=== PATIENT | female | born 1985 | race Caucasian/White ===

== ENCOUNTER → 2021-01-08 07:36 | Outpatient (CLI) | payer OTHER, MEDICAID, SELFPAY ==
--- NOTE | 2021-01-08 | DI.US.S_ITS ---
PROCEDURE: US OB <= 14 WEEKS FETUS INDICATIONS: DATES AND SIZING OUTSIDE/PRIOR DATING DATA: Last menstrual period (LMP): 11/21/20. LMP-based estimated date of delivery (RICHARD): 08/28/21. First dating scan (date and location): 01/08/21. Estimated date of delivery (RICHARD) from first dating scan: 08/27/21. TECHNIQUE: Real-time scanning was performed of the fetus and maternal pelvic organs, with image documentation. Endovaginal scanning was also performed to better visualize the fetus and maternal ovaries. COMPARISON: None. FINDINGS: Embryo: Single living intrauterine fetus with a crown-rump length measuring 1.0 cm, 7 weeks 0 days. Yolk sac is visualized. A presumed hypoechoic perigestational hemorrhage measuring 3.3 x 2.5 x 0.5 cm. Heart rate: 133 beats per minute Measurement variability in dating: +/- 4 weeks by LMP, +/- 7 days by mean sac diameter (use before 6 weeks gestation if crown-rump length not able to be measured), +/- 5 days by crown-rump length (up to 8 weeks 6 days gestation), +/- 7 days by crown-rump length (up to 13 weeks 6 days gestation). Maternal organs: Ovaries unremarkable except for a presumed left-sided corpus luteum . IMPRESSION: Single living intrauterine fetus with a gestational age measuring 7 weeks and 0 days with an ultrasound RICHARD of 08/27/21. Perigestational hemorrhage. Dictated by: Sarmad Cisneros M.D. on 01/08/2021 at 10:14 Approved by: Sarmad Cisneros M.D. on 01/08/2021 at 10:16
== END ==
PROVIDERS: PCP Registered Nurse; Referring Provider Nurse Practitioner Obstetrics & Gynecology; Visit Provider Nurse Practitioner Obstetrics & Gynecology
DX: Z36.87 Encounter for antenatal screening for uncertain dates (principal); Z3A.01 Less than 8 weeks gestation of pregnancy
CPT/HCPCS: 76801; 76817

== ENCOUNTER 2021-06-04 11:14 | Outpatient (CLI) | payer OTHER, MEDICAID, SELFPAY ==
--- NOTE | 2021-06-04 11:25 | DI.US.S_ITS ---
PROCEDURE: US OB LIMITED INDICATIONS: EVALUATE FOR SOURCE OF BLEEDING. AMNIOTIC FLUID. OUTSIDE/PRIOR DATING DATA: Last menstrual period (LMP): 11/21/2020. LMP-based estimated date of delivery (RICHARD): 08/28/2021. First dating scan (date and location): 01/08/2021. Estimated date of delivery (RICHARD) from first dating scan: 08/27/2021. The calculations are made using the ultrasound RICHARD of 08/27/2021. TECHNIQUE: Real-time scanning was performed of the fetus, with image documentation. Endovaginal scanning: Not performed. COMPARISON: None. FINDINGS: A single living intrauterine gestation is present. Presentation: Breech. Placenta: Placental position is posterior, without previa. No placental abruption. Amniotic fluid index: 14.1 cm, normal range is 5-24 cm. Single deepest vertical pocket is 3.8 cm. heart rate: 133 beats per minute. Maternal cervical canal: 4 cm long. Normal lower limit is 2.5 cm. No funneling. Cervical cyst most consistent with nabothian cysts. Estimated gestational age from initial scan: 28 weeks 0 days. IMPRESSION: 1. Browning living intrauterine at 28 weeks 0 days based on prior ultrasound. Breech position. 2. Normal placenta and amniotic fluid. 3. No placental abruption. No cervical funneling. Dictated by: Mikey Church M.D. on 06/04/2021 at 12:47 Approved by: Mikey Church M.D. on 06/04/2021 at 12:51
--- NOTE | 2021-06-04 13:09 | P.TNLD_ITS ---
Visit Information Visit Information Date of evaluation: 06/04/21 Primary OB Provider: Jessica Tracey On-call OB Provider: Nehal Mcdonnell Reason for Evaluation: Yes other Comments/Additional reasons for admission: 36YO @ [id number] based on LMP and early US. Presents for evaluation of vaginal bleeding has had spotting throughout , but this seems like slightly more to her with no discernable reason (no sex or activity in the last 24 hours). No cramping or contractions. No leaking of fluid. is complicated by ITP (platelets 60 on 06/03/21) for which she is seeing [facility] and [facility] and will likely deliver at [facility]. Vital Signs Vital Signs: BP 120/74mmHg, HR 84bpm, T 97.2F Temporal, RR 18/min [facility] Medical History (Updated 06/04/21 @ 13:24 by Jessica Tracey [facility]) Anemia (~2007) Anorexia nervosa (~1999) Surgical History Anesthesia History of bladder surgery (~2010) History of dilatation and curettage (~2007) History of knee surgery History of surgery on wrist (~1999) Family History (Updated 03/21/21 @ 12:29 by Lis Flores MD) Grandmother Hypertension Social History Smoking Status: Never smoker alcohol intake: never substance use type: does not use Review of Systems Review of Systems ROS: Yes All systems reviewed with the patient and are negative except as otherwise documented Exam Vital Signs (past 8 hours): see above Other: NO vaginal bleeding at time of evaluation or throughout 1.5 hour triage. Objective Imaging US OB Limited: Radiologist's impression: [address] [address] Ultrasound Report Signed Patient: Hair Pina MR#: [id number] : 1985 Acct:[id number] Age/Sex: 36 / F Date of Service: 06/04/21 Loc: LABOR Accession Number: [id number] ?? Procedure: US OB limited Ordering Provider: Jessica Tracey C.N.M. PROCEDURE:? US OB LIMITED ? INDICATIONS:? EVALUATE FOR SOURCE OF BLEEDING. AMNIOTIC FLUID. ? OUTSIDE/PRIOR DATING DATA:? Last menstrual period (LMP):? 11/21/2020.? LMP-based estimated date of delivery (RICHARD):? 08/28/2021.? First dating scan (date and location):? 01/08/2021.? Estimated date of delivery (RICHARD) from first dating scan:? 08/27/2021. The calculations are made using the ultrasound RICHARD of 08/27/2021.? ? TECHNIQUE: Real-time scanning was performed of the fetus, with image documentation.? Endovaginal scanning:? Not performed. ? COMPARISON:? None. ? FINDINGS:? A single living intrauterine gestation is present.? Presentation:? Breech.? Placenta:? Placental position is posterior, without previa.? No placental abruption. ? Amniotic fluid index:? 14.1 cm, normal range is 5-24 cm. Single deepest vertical pocket is 3.8 cm.? ? heart rate:? 133 beats per minute.? Maternal cervical canal:? 4 cm long.? Normal lower limit is 2.5 cm.? No funneling.? Cervical cyst most consistent with nabothian cysts.? ? Estimated gestational age from initial scan:? 28 weeks 0 days.? ? ? IMPRESSION:? 1. Browning living intrauterine at 28 weeks 0 days based on prior ultrasound.? Breech position. ? 2. Normal placenta and amniotic fluid. ? 3. No placental abruption.? No cervical funneling. ? ? ? Dictated by: Mikey Church M.D. on 06/04/2021 at 12:47 ? ? Approved by: Mikey Cuhrch M.D. on 06/04/2021 at 12:51 ? Evaluation Evaluation Baseline heart rate: 125 Variability: Moderate (11-25) monitor accelerations: Present Monitor Decelerations: Absent Contraction Frequency (minutes): 0 Comments: CE deferred Diagnosis, Plan/Disposition Final Diagnosis (1) Spotting affecting , antepartum: Status: Acute (2) Thrombocytopenia during : Status: Acute Plan/Disposition Plan: Reassurance given for no significant bleeding and no concerns for labor. Discharge to home with routine precautions. F/U w/ MFM and [facility] as previously scheduled. OB Disposition: home
== END 2021-06-04 13:10 | disposition home or self-care (01) ==
LOC: LABOR 12:12 → OB 06-05 14:00
PROVIDERS: Referring Provider Nurse Practitioner Obstetrics & Gynecology; Visit Provider Nurse Practitioner Obstetrics & Gynecology
DX: O26.852 Spotting complicating pregnancy, second trimester (principal); O99.112 Other diseases of the blood and blood-forming organs and certain disorders involving the immune mechanism complicating pregnancy, second trimester; D69.6 Thrombocytopenia, unspecified; Z3A.27 27 weeks gestation of pregnancy
CPT/HCPCS: 59050; 76815; 76817; G0378; G0379

== ENCOUNTER → 2021-06-21 06:54 | Outpatient (CLI) | payer OTHER, MEDICAID, SELFPAY ==
[2021-06-21 09:05] LABS: Glucose 1 Hour 162 mg/dL (70-170)
[2021-06-21 09:06] LABS: Glucose Fasting 90 mg/dL (70-100)
[2021-06-21 10:21] LABS: Glucose Tol Interpretation INTERPRETATION
[2021-06-21 10:26] LABS: Glucose 2 Hour 121 mg/dL (70-140)
[2021-06-21 12:00] LABS: Glucose 3 Hour 86 mg/dL (70-115)
== END ==
PROVIDERS: Referring Provider Nurse Practitioner Obstetrics & Gynecology; Visit Provider Nurse Practitioner Obstetrics & Gynecology
DX: Z13.1 Encounter for screening for diabetes mellitus (principal); Z3A.29 29 weeks gestation of pregnancy
CPT/HCPCS: 36415; 82951; 82952

== ENCOUNTER 2021-06-25 12:52 | Observation (INO) | payer OTHER, MEDICAID, SELFPAY ==
--- NOTE | 2021-06-25 | DI.US.S_ITS ---
PROCEDURE: US OB LIMITED INDICATIONS: EVALUATE BLEEDING OUTSIDE/PRIOR DATING DATA: Last menstrual period (LMP): 11/21/20. LMP-based estimated date of delivery (RIHCARD): 08/28/21. First dating scan (date and location): 01/08/21. Estimated date of delivery (RICHARD) from first dating scan: 08/27/21. The calculations are made using the ultrasound RICHARD of 08/27/21. TECHNIQUE: Real-time scanning was performed of the fetus for biophysical profile, with image documentation. Color and pulse Doppler interrogation was also performed of the umbilical artery near its insertion into the placenta. Endovaginal scanning: Performed for improved cervical detail COMPARISON: [facility], OB LIMITED, 06/04/2021, 11:41. FINDINGS: General: A single living intrauterine gestation is present. Presentation: Cephalic Placenta: Placental position is posterior , without previa. No evidence of abruption. Amniotic fluid index: 6.3 cm, normal range is 5-24 cm. Single deepest vertical pocket is 3.0 cm. heart rate: 144 beats per minute. Maternal cervical canal: 3.8 cm long. Normal lower limit is 2.5 cm. Endovaginal imaging confirms a closed cervix with a complicated posterior nabothian cyst. There is no funneling. The head is immediately adjacent to the internal cervical os. No evidence of Vasa previa. IMPRESSION: 1. Single living intrauterine . 2. No evidence of placental abruption. 3. Closed cervix. No evidence of Vasa previa. 4. Ordering provider was present during the examination. We strive to produce accurate, complete, and clear reports of imaging services. To assist us in improving patient care, this report was composed using standard report templates and voice recognition software. Therefore, it may contain abnormal punctuation, insertions and/or omissions. Occasional wrong-word or sound-alike substitutions may occur. Though we review the report and make efforts to correct it, we do recommend that the report be read carefully in proper context to recognize any text inaccuracies. Dictated by: Elida Ng M.D. on 06/25/2021 at 14:40 Approved by: Elida Ng M.D. on 06/25/2021 at 14:44
--- NOTE | 2021-06-25 13:12 | PM.OBTRLD ---
Visit Information Visit Information Date of evaluation: 06/25/21 Primary OB Provider: Jessica Tracey On-call OB Provider: Mj Landrum Reason for Evaluation: Yes other Comments/Additional reasons for admission: 36YO @ 30wks 6days based on LMP and early US.? Presents for evaluation of vaginal bleeding. Has had spotting throughout , but this is the most she's seen so far. Had sex yesterday afternoon that led to spotting which stopped overnight. Was out shopping today and noticed return of spotting with some small clots and now left sided cramping. No leaking of fluid.? is complicated by ITP (platelets 54 on 06/21/21) for which she is seeing [facility] and [facility] and will deliver at [facility].? Next appt w/ Prov [facility] is 06/28/21. ? Vital Signs Vital Signs: BP 120/68mmHg, HR 86bpm, T 36.8C Temporal PFSH Medical History (Updated 06/26/21 @ 07:25 by Jessica Tracey CNM) Anemia (~2007) Anorexia nervosa (~1999) Surgical History Anesthesia History of bladder surgery (~2010) History of dilatation and curettage (~2007) History of knee surgery History of surgery on wrist (~1999) Family History Grandmother Hypertension Social History Smoking Status: Never smoker alcohol intake: never substance use type: does not use Review of Systems Review of Systems ROS: Yes All systems reviewed with the patient and are negative except as otherwise documented Exam Vital Signs (past 8 hours): see above Speculum Exam - Vagina: normal appearance of the vagina and other (brown discharge visible) Speculum Exam - Cervix: normal appearance of the cervix, closed and other (small bleeding from os and endocervical transformation zone) Presentation: vertex Objective Imaging OB US Limited: My impression: DWAINE- 6.3cm. CL-3.8cm. Vertex lie. No evidence of bleeding. Radiologist's impression: Patient: Hair Pina MR#: [id number] : 1985 Acct:[id number] Age/Sex: 36 / F Date of Service: 06/25/21 Loc: LABOR BC06- Accession Number: [id number] ?? Procedure: US OB limited Ordering Provider: Jessica Tracey C.N.M. PROCEDURE:? US OB LIMITED ? INDICATIONS:? EVALUATE BLEEDING ? OUTSIDE/PRIOR DATING DATA:? Last menstrual period (LMP):? 11/21/20.? LMP-based estimated date of delivery (RICHARD):? 08/28/21.? First dating scan (date and location):? 01/08/21.? Estimated date of delivery (RICHARD) from first dating scan:? 08/27/21. The calculations are made using the ultrasound RICHARD of 08/27/21.? ? TECHNIQUE:? Real-time scanning was performed of the fetus for biophysical profile, with image documentation.? Color and pulse Doppler interrogation was also performed of the umbilical artery near its insertion into the placenta.? Endovaginal scanning:? Performed for improved cervical detail ? COMPARISON:? [facility], OB LIMITED, 06/04/2021, 11:41. ? FINDINGS:? ? General:? A single living intrauterine gestation is present.? Presentation:? Cephalic Placenta:? Placental position is posterior , without previa.? No evidence of abruption. Amniotic fluid index:? 6.3 cm, normal range is 5-24 cm.? Single deepest vertical pocket is 3.0 cm. heart rate:? 144 beats per minute.? Maternal cervical canal:? 3.8 cm long.? Normal lower limit is 2.5 cm.? Endovaginal imaging confirms a closed cervix with a complicated posterior nabothian cyst.? There is no funneling.? The head is immediately adjacent to the internal cervical os.? No evidence of Vasa previa. ? ? IMPRESSION:? ? 1. Single living intrauterine . ? 2. No evidence of placental abruption. ? 3. Closed cervix.? No evidence of Vasa previa. ? 4. Ordering provider was present during the examination.? ? ? We strive to produce accurate, complete, and clear reports of imaging services. To assist us in improving patient care, this report was composed using standard report templates and voice recognition software. Therefore, it may contain abnormal punctuation, insertions and/or omissions. Occasional wrong-word or sound-alike substitutions may occur. Though we review the report and make efforts to correct it, we do recommend that the report be read carefully in proper context to recognize any text inaccuracies. ? Dictated by: Elida Ng M.D. on 06/25/2021 at 14:40 ? ? Approved by: Elida Ng M.D. on 06/25/2021 at 14:44 ? Labs Result Diagrams: 06/25/21 13:55 Labs: [facility] CLIA ID [id number] [address] [place] [address] RUN DATE: 06/26/21 Specimen Inquiry PAGE 1 RUN TIME: 726 Name: Hair Pina Age/Sex: 36/F Attend Dr: Jessica Tracey Unit#: [id number] : 1985Location: LABOR BC06-01 Re06/25/21 Disch: 06/25/21 Status: DIS INOo SPEC #: [id number] SAURABH: 06/25/21 STATUS: COMP REQ : [id number] RECD: 06/25/[address]: Jessica TraceyNRoxana FINAL: 06/25/21-1406 ENTERED: 06/25/21-1304 [facility] DR: FAX TO: ORDERED: CBC Test Result Flag Reference Site WBC Count 8.0 4.5-11.0 X10^3/uL RBC Count 3.45 L 4.0-5.2 X10^6/uL Hemoglobin 10.2 L 12.0-16.0 g/dL Hematocrit 30.2 L 36-46 % MCV 87.6 80-100 fL MCH 29.6 26-34 PG MCHC 33.9 30-36 % RDW 13.4 11.6-14.8 % Platelet Count 47 L 150-400 X10^3/uL Neutrophils % 80.5 H 50-75 % Lymphocytes % 11.6 L 25-40 % Monocytes % 5.4 3-14 % Eosinophils % 2.2 2-4 % Basophils % 0.3 0-2 % Neutrophils Abs. # 6500 7929-7191 /uL Lymphocytes Abs. # 900 L 5365-4477 /uL Monocytes Abs. # 400 0-900 /uL Eosinophils Abs # 200 0-450 /uL Basophils Abs. # 0 0-100 /uL Evaluation Evaluation Baseline heart rate: 140 Variability: Moderate (11-25) monitor accelerations: Present Monitor Decelerations: Absent Contraction Frequency (minutes): 0 Cervical dilation (cm): 0 Diagnosis, Plan/Disposition Final Diagnosis (1) Spotting affecting , antepartum: Status: Acute Problem details: NO evidence of concerning bleed. Continue to monitor and maintain pelvic rest. (2) Thrombocytopenia during : Status: Acute Problem details: Follow up with hematology and MFM. Results will be faxed to them for their review. Plan/Disposition Plan: Discharge to home with recommendation for pelvic rest. Follow-up with MFM 06/28/21 as previously scheduled. OB Disposition: home
[2021-06-25 14:07] LABS: Add Manual Diff / Slide Review NO; Basophils Absolute Auto 0 /uL (0-100); Basophils Percent Auto 0.3 % (0-2); Eosinophils Absolute Auto 200 /uL (0-450); Eosinophils Percent Auto 2.2 % (2-4); Hematocrit 30.2 % (36-46); Hemoglobin 10.2 g/dL (12.0-16.0); Lymphocytes Absolute Auto 900 /uL (1100-4500); Lymphocytes Percent Auto 11.6 % (25-40); Mean Corpuscular HGB Conc 33.9 % (30-36); Mean Corpuscular Hemoglobin 29.6 PG (26-34); Mean Corpuscular Volume 87.6 fL (80-100); Monocytes Absolute Auto 400 /uL (0-900); Monocytes Percent Auto 5.4 % (3-14); Neutrophils Absolute Auto 6500 /uL (1500-7000); Neutrophils Percent Auto 80.5 % (50-75); Platelet Count 47 X10^3/uL (150-400); Red Blood Cell Count 3.45 X10^6/uL (4.0-5.2); Red Cell Distribution Width 13.4 % (11.6-14.8)
== END 2021-06-25 14:35 | disposition home or self-care (01) ==
PROVIDERS: Admitting Provider Nurse Practitioner Obstetrics & Gynecology; PCP Nurse Practitioner Obstetrics & Gynecology; Referring Provider Nurse Practitioner Obstetrics & Gynecology; Visit Provider Nurse Practitioner Obstetrics & Gynecology
DX: O99.113 Other diseases of the blood and blood-forming organs and certain disorders involving the immune mechanism complicating pregnancy, third trimester (principal); O26.853 Spotting complicating pregnancy, third trimester; D69.6 Thrombocytopenia, unspecified; Z3A.30 30 weeks gestation of pregnancy
CPT/HCPCS: 36415; 59025; 76815; 76817; 76819; 85025; G0378; G0379

== ENCOUNTER → 2021-07-29 15:11 | Outpatient (ROUT) | payer OTHER, MEDICAID, SELFPAY | PROVIDERS: PCP Nurse Practitioner Obstetrics & Gynecology; Visit Provider Nurse Practitioner Obstetrics & Gynecology | DX: Z36.85 Encounter for antenatal screening for Streptococcus B (principal); Z3A.35 35 weeks gestation of pregnancy | CPT/HCPCS: 87081 ==

== ENCOUNTER → 2021-09-30 11:56 | Outpatient (ROUT) | payer OTHER, MEDICAID, SELFPAY ==
[2021-09-30 12:04] LABS: Add Manual Diff / Slide Review NO; Basophils Absolute Auto 0 /uL (0-100); Basophils Percent Auto 0.8 % (0-2); Eosinophils Absolute Auto 200 /uL (0-450); Eosinophils Percent Auto 3.7 % (2-4); Hematocrit 38.2 % (36-46); Hemoglobin 12.8 g/dL (12.0-16.0); Lymphocytes Absolute Auto 1500 /uL (1100-4500); Lymphocytes Percent Auto 24.9 % (25-40); Mean Corpuscular HGB Conc 33.5 % (30-36); Mean Corpuscular Hemoglobin 28.2 PG (26-34); Mean Corpuscular Volume 84.2 fL (80-100); Monocytes Absolute Auto 500 /uL (0-900); Monocytes Percent Auto 8.4 % (3-14); Neutrophils Absolute Auto 3900 /uL (1500-7000); Neutrophils Percent Auto 62.2 % (50-75); Platelet Count 83 X10^3/uL (150-400); Red Blood Cell Count 4.54 X10^6/uL (4.0-5.2); Red Cell Distribution Width 14.9 % (11.6-14.8); White Blood Cell Count 6.2 X10^3/uL (4.5-11.0)
[2021-09-30 12:39] LABS: Thyroid Stimulating Hormone 2.99 uIU/mL (0.47-4.68)
[2021-10-02 19:17] LABS: T4 Total Thyroxine 6.86 ug/dL (5.5-11.0)
== END ==
PROVIDERS: PCP Nurse Practitioner Obstetrics & Gynecology; Visit Provider Nurse Practitioner Obstetrics & Gynecology
DX: D69.6 Thrombocytopenia, unspecified (principal); E03.9 Hypothyroidism, unspecified
CPT/HCPCS: 84436; 84443; 85025

== ENCOUNTER → 2024-06-22 07:41 | Outpatient (CLI) | payer OTHER, SELFPAY ==
[2024-06-22 16:08] LABS: Influenza A - CEPHEID Flu A POSITIVE (NEGATIVE); Influenza B - CEPHEID Flu B NEGATIVE (NEGATIVE); Respiratory Syncytial Virus Negative (Negative)
[2024-06-22 16:11] LABS: COVID-19 CEPHEID 4-PLEX PCR Negative (Negative)
== END ==
PROVIDERS: PCP Nurse Practitioner Obstetrics & Gynecology; Visit Provider Student in an Organized Health Care Education/Training Program
DX: R05.1 Acute cough (principal); J02.9 Acute pharyngitis, unspecified
CPT/HCPCS: 0241U; 87070